=== PATIENT | male | born 1990 ===

== ENCOUNTER 2024-05-14 04:41 | Inpatient (IN) | payer MEDICAID ==
[~2024-05-14] VITALS: Ht 180.3 cm; Wt 94.5 kg
[2024-05-14] MEDS ORDERED: PALI6TAB6 PO (22:26)
[2024-05-15] MEDS ORDERED: mag hydrox/Alum hydrox/simeth 30ml oral suspension PO PRN (00:15)
[2024-05-15] MEDS ORDERED: acetaminophen 325mg tablet PO PRN (00:15)
[2024-05-15] MEDS ORDERED: magnesium hydroxide 30ml (MOM) UD suspension PO PRN (00:20)
[2024-05-15 00:42] VITALS: BP 130/79; PULSE 97; RESP 18; TEMP 97.2; O2SAT 98
[2024-05-15 07:00] VITALS: RESP 16; O2SAT 96
[2024-05-15] MEDS ORDERED: loperamide 2mg capsule PO PRN (07:50)
[2024-05-15] MEDS: PALIPERIDONE 3 MG TAB.ER.24 PO SCH (08:00)
[2024-05-15] MEDS: nicotine 21mg patch - 24 hr TD SCH (08:00)
[2024-05-15] MEDS ORDERED: PALIPERIDONE 3 MG TAB.ER.24 PO SCH (08:00)
[2024-05-15 08:06] VITALS: BP 110/60; PULSE 68; RESP 16; TEMP 98.7; O2SAT 96
[2024-05-15] MEDS: NICOTINE POLACRILEX 2 MG LOZENGE BC PRN (16:35)
[2024-05-15] MEDS: nicotine 21mg patch - 24 hr TD ONE (16:35)
[2024-05-15 19:00] VITALS: RESP 16; O2SAT 98
[2024-05-15 20:00] VITALS: BP 127/75; PULSE 93; RESP 16; TEMP 97.1; O2SAT 98
[2024-05-16 07:00] VITALS: RESP 15; O2SAT 96
[2024-05-16 08:00] VITALS: BP 141/89; PULSE 84; RESP 14; TEMP 97.9; O2SAT 96
[2024-05-17 07:30] VITALS: BP 110/60; PULSE 66; RESP 16; TEMP 97.8; O2SAT 97
[2024-05-17 18:43] VITALS: RESP 16; O2SAT 97
[2024-05-17 20:00] VITALS: BP 141/77; PULSE 93; RESP 16; TEMP 97.1; O2SAT 98
[2024-05-18 07:30] VITALS: BP 105/63; PULSE 77; RESP 16; TEMP 97.8; O2SAT 98
[2024-05-18] MEDS: benztropine 1mg tablet PO SCH (08:55)
[2024-05-18] MEDS ORDERED: PALIPERIDONE 3 MG TAB.ER.24 PO ONE (09:10)
[2024-05-18] MEDS: haloperidol 5mg tablet PO ONE ×2 (09:31→20:15)
[2024-05-18] MEDS: PALIPERIDONE 3 MG TAB.ER.24 PO ONE (09:32)
[2024-05-18 19:00] VITALS: BP 138/91; PULSE 80; RESP 16; TEMP 98.5; O2SAT 97
[2024-05-19 07:30] VITALS: BP 104/57; PULSE 71; RESP 18; TEMP 97.5; O2SAT 97
[2024-05-19] MEDS: PALIPERIDONE 3 MG TAB.ER.24 PO ONE (10:34)
[2024-05-19] MEDS: haloperidol 5mg tablet PO ONE (10:34)
[2024-05-19] MEDS: benztropine 1mg tablet PO ONE (10:35)
[2024-05-19 19:36] VITALS: RESP 15
[2024-05-19] MEDS: haloperidol 5mg tablet PO SCH (20:27)
[2024-05-20 07:30] VITALS: BP 95/60; PULSE 67; RESP 16; TEMP 99.1; O2SAT 98
[2024-05-20] MEDS: paliperidone palmitate inj 234 MG/1.5 ML SYRINGE IM ONE (12:01)
[2024-05-20] MEDS: haloperidol 5mg tablet PO ONE (12:11)
[2024-05-20] MEDS: benztropine 1mg tablet PO ONE (12:18)
[2024-05-20 19:00] VITALS: RESP 16; O2SAT 100
[2024-05-20 20:00] VITALS: BP 111/66; PULSE 66; RESP 16; TEMP 97.3; O2SAT 100
[2024-05-21 07:24] VITALS: BP 90/59; PULSE 86; RESP 17; TEMP 97.8; O2SAT 96
[2024-05-21 08:00] VITALS: RESP 17; O2SAT 96
[2024-05-21] MEDS: hydrOXYzine 25 MG tablet PO PRN (13:25)
[2024-05-21 19:00] VITALS: RESP 18; O2SAT 94
[2024-05-21 19:59] VITALS: BP 127/74; PULSE 103; RESP 18; TEMP 99.1; O2SAT 94
[2024-05-22 07:50] VITALS: BP 137/75; PULSE 92; RESP 18; TEMP 98.7; O2SAT 95
[2024-05-22 08:00] VITALS: RESP 18; O2SAT 95
[2024-05-22 19:00] VITALS: RESP 16; O2SAT 95
[2024-05-22 19:38] VITALS: BP 101/61; PULSE 77; RESP 16; TEMP 99.1; O2SAT 95
[2024-05-23 07:00] VITALS: BP 88/48; PULSE 64; RESP 16; TEMP 97.1; O2SAT 97
[2024-05-23 19:46] VITALS: RESP 13; O2SAT 95
[2024-05-23 20:00] VITALS: BP 136/79; PULSE 86; RESP 13; TEMP 98.2; O2SAT 95
[2024-05-24 07:30] VITALS: BP 113/69; PULSE 63; RESP 13; TEMP 97.8; O2SAT 97
[2024-05-24] MEDS: paliperidone palmitate 156 mg/ml inj.**IM only IM ONE (14:45)
[2024-05-24] MEDS ORDERED: HALO10TA13 PO (15:58)
[2024-05-24] MEDS ORDERED: HYDR-3686 PO (15:58)
[2024-05-24] MEDS ORDERED: CITA10TA17 PO (15:58)
[2024-05-24] MEDS ORDERED: COG1T PO (15:58)
[2024-05-24] MEDS: CITALOpram 10mg tablet PO SCH (16:11)
[2024-05-24] MEDS: acetaminophen 325mg tablet PO PRN (16:13)
[2024-05-24 19:00] VITALS: RESP 12; O2SAT 94
[2024-05-24 20:00] VITALS: BP 130/93; PULSE 115; RESP 12; TEMP 98.6; O2SAT 94
[2024-05-25] MEDS ORDERED: PRAZ1CAP5 PO (07:24)
[2024-05-25 07:30] VITALS: BP 120/68; PULSE 82; RESP 12; TEMP 98.7; O2SAT 99
[2024-05-25 09:20] LABS: CHOL/HDL RATIO 3.4 (0.00-4.99); CHOLESTEROL 151 MG/DL (0-200); HDL CHOLESTEROL 45 MG/DL (35-60); LDL CHOLESTEROL 89 MG/DL (50-100); TRIGLYCERIDES 148 MG/DL (20-135)
[2024-05-25] MEDS ORDERED: prazosin 1mg capsule PO SCH (21:00)
== END 2024-05-25 13:15 | disposition home or self-care (01) | DRG 750 ==
LOC: ADULT MH 04:41 → UNDOADMIN 19:30 → ADULT MH 05-20 22:26
PROVIDERS: ADMIT Psychiatry & Neurology Psychiatry
PROC: GZHZZZZ Group Psychotherapy (ICD-10-PCS; principal; 2024-05-15)
PROC: GZ51ZZZ Individual Psychotherapy, Behavioral (ICD-10-PCS; 2024-05-15)
DX: F20.9 Schizophrenia, unspecified (principal); Z91.148 Patient's other noncompliance with medication regimen for other reason; F41.9 Anxiety disorder, unspecified; F60.0 Paranoid personality disorder; Z79.899 Other long term (current) drug therapy; Z59.00 Homelessness unspecified
CPT/HCPCS: 36415; 80061; 87081; A6250; J2426; Q0177